=== PATIENT | male | born 1960 | race Caucasian/White ===

== ENCOUNTER 2017-07-25 14:30 | Emergency (ER) | payer OTHER ==
[~2017-07-25] VITALS: Ht 177.8 cm; Wt 86.4 kg
[2017-07-25 14:39] VITALS: Ht 177.8 cm; Wt 86.4 kg
[2017-07-25] MEDS ORDERED: SOD CHLORIDE 0.9% 1,000 ML IV STA (14:44)
[2017-07-25 15:10] LABS: BASOPHILS % 0.5 % (0.0-2.0); EOSINOPHILS % 0.3 % (0.0-7.0); HEMATOCRIT 43.2 % (42.0-52.0); HEMOGLOBIN 15.3 g/dl (14.0-18.0); LYMPHOCYTES # 2.7 10^3/ul (0.8-2.9); LYMPHOCYTES % 35.2 % (15.0-51.0); MEAN CORPUSCULAR HEMOGLOBIN 31.3 pg (29.0-33.0); MEAN CORPUSCULAR HGB CONC 35.4 g/dl (32.0-37.0); MEAN CORPUSCULAR VOLUME 88.3 fl (82.0-101.0); MEAN PLATELET VOLUME 9.4 fl (7.4-10.4); MONOCYTE # 0.6 10^3/ul (0.3-0.9); MONOCYTES % 7.2 % (0.0-11.0); NEUTROPHILS % 56.5 % (39.0-77.0); PLATELET COUNT 224 10^3/UL (140-415); RED BLOOD COUNT 4.89 10^6/ul (4.70-6.10); RED CELL DISTRIBUTION WIDTH 12.4 % (11.5-14.5); WHITE BLOOD COUNT 7.7 10^3/ul (4.8-10.8)
[2017-07-25 15:29] LABS: ALANINE AMINOTRANSFERASE 33 IU/L (13-69); ALBUMIN 4.8 g/dl (3.3-4.9); ALKALINE PHOSPHATASE 55 IU/L (42-121); ANION GAP 21 (8-16); ASPARTATE AMINO TRANSFERASE 43 IU/L (15-46); BILIRUBIN,INDIRECT 0.4 mg/dl (0-1.1); BILIRUBIN,TOTAL 0.4 mg/dl (0.2-1.3); BLOOD UREA NITROGEN 11 mg/dl (7-20); CALCIUM 9.1 mg/dl (8.4-10.2); CARBON DIOXIDE 26 mmol/L (21-31); CHLORIDE 105 mmol/L (97-110); CREATININE 0.75 mg/dl (0.61-1.24); GLUCOSE 111 mg/dl (70-220); POTASSIUM 3.9 mmol/L (3.5-5.1); SODIUM 148 mmol/L (135-144); TOTAL PROTEIN 7.8 g/dl (6.1-8.1)
[2017-07-25 15:31] LABS: ACETAMINOPHEN < 10.0 ug/ml (10.0-30.0); SALICYLATE < 1.0 mg/dl (5.0-30.0)
--- NOTE | 2017-07-25 15:56 | RADRPT ---
PROCEDURE: CT Brain without contrast. CLINICAL INDICATION: Altered Mental Status TECHNIQUE: A CT of the brain was performed on a [employer] 64-slice CT scanner utilizing axial imaging from the skull base through the vertex without IV contrast. Multiplanar reformatted images were made. Images were reviewed on a PACS workstation. The CTDIvol is 43.2 mGy and the DLP is 720 mGycm. COMPARISON: October 02, 2016 One or more of the following dose reduction techniques were used: Automated exposure control. Adjustment of the mA and/or kV according to patient size. Use of iterative reconstruction technique. FINDINGS: There is no intracranial hemorrhage, mass effect, or midline shift. No extra-axial fluid collection is seen. The ventricles and sulci are normal in size and configuration. The density of the brain is normal, and the monroe white matter differentiation appears well-preserved. The visualized paranasal sinuses and osseous structures are grossly unremarkable. IMPRESSION: 1. No evidence of acute intracranial pathology. 2. The brain is normal in appearance. Physician Gibson Date Time Electronically viewed and signed by Physician Gibson on 07/25/2017 15:56 ML/
--- NOTE | 2017-07-25 16:24 | ERD ---
ER Documentation Chief Complaint Date/Time DATE: 07/25/17 TIME: 16:18 Chief Complaint ALCOHOL INTOXICATION FOUND OUTSIDE, SINUS TACHYCARDIA BIB RA 87 HPI This is a 57-year-old male who was brought in by EMS for evaluation of altered mental status. This patient was found sleeping outside in the heat and did have an order of alcohol according to EMS. The patient was transferred to the emergency room for further evaluation. The patient is unable to give a detailed history secondary to his clinical condition at this time. ROS All systems reviewed and are negative except as per history of present illness. Allergies Allergies: Coded Allergies: No Known Allergy (Unverified , 07/25/17) PMhx/Soc History of Surgery: No Anesthesia Reaction: No Hx Neurological Disorder: No Hx Respiratory Disorders: Yes (COPD) Hx Cardiac Disorders: No Hx Psychiatric Problems: No Hx Miscellaneous Medical Probl: No Hx Alcohol Use: Yes (DAILY) Hx Substance Use: No Hx Tobacco Use: Yes (10 CIG/DAY) Smoking Status: Current every day smoker Physical Exam Vitals Vital Signs Date Time Temp Pulse Resp B/P Pulse Ox O2 Delivery O2 Flow Rate FiO2 07/25/17 15:53 99.9 90 16 134/87 100 Nasal Cannula 2.0 07/25/17 15:50 Nasal Cannula 2 07/25/17 15:12 100.9 07/25/17 14:39 103.3 107 17 136/90 100 Physical Exam INITIAL VITAL SIGNS: Reviewed by me GENERAL: The patient has a disheveled appearance, warm to touch HEENT: Dry mucous membranes, pupils equal, round, and reactive to light. EOMI. There is no scleral icterus. NECK: C-spine is soft and supple, there is no meningismus. There is no cervical lymphadenopathy. LUNGS: Clear to auscultation bilaterally. There are no rales, wheezes or rhonchi. HEART: Regular rate and rhythm, no murmurs, clicks, rubs or gallops. ABDOMEN: Soft, non-tender, non-distended. There are bowel sounds in all four quadrants. No rebound or guarding. EXTREMITIES: There is no peripheral cyanosis or edema. No focal swelling or erythema. NEUROLOGICAL: The patient moves all four extremities with 5/5 strength. Cranial nerves II - XII are intact. Normal gait. Alert and oriented SKIN: There is no apparent rash or petechiae. HEME/LYMPHATIC: There is no evidence of excessive bruising or lymphedema. PSYCHIATRIC: The patient does not appear anxious or depressed. Result Diagram: 07/25/17 1440 07/25/17 1440 Results 24 hrs Laboratory Tests Test 07/25/17 14:40 07/25/17 14:53 White Blood Count 7.710^3/ul Red Blood Count 4.8910^6/ul Hemoglobin 15.3g/dl Hematocrit 43.2% Mean Corpuscular Volume 88.3fl Mean Corpuscular Hemoglobin 31.3pg Mean Corpuscular Hemoglobin Concent 35.4g/dl Red Cell Distribution Width 12.4% Platelet Count 20966^3/UL Mean Platelet Volume 9.4fl Neutrophils % 56.5% Lymphocytes % 35.2% Monocytes % 7.2% Eosinophils % 0.3% Basophils % 0.5% Nucleated Red Blood Cells % 0.0/100WBC Neutrophils # (Manual) 4.410^3/ul Lymphocytes # 2.710^3/ul Monocytes # 0.610^3/ul Eosinophils # 0.010^3/ul Basophils # 0.010^3/ul Nucleated Red Blood Cells # 0.010^3/ul Sodium Level 148mmol/L Potassium Level 3.9mmol/L Chloride Level 105mmol/L Carbon Dioxide Level 26mmol/L Anion Gap 21 Blood Urea Nitrogen 11mg/dl Creatinine 0.75mg/dl Glucose Level 111mg/dl Calcium Level 9.1mg/dl Total Bilirubin 0.4mg/dl Direct Bilirubin 0.00mg/dl Indirect Bilirubin 0.4mg/dl Aspartate Amino Transf (AST/SGOT) 43IU/L Alanine Aminotransferase (ALT/SGPT) 33IU/L Alkaline Phosphatase 55IU/L Total Protein 7.8g/dl Albumin 4.8g/dl Globulin 3.00g/dl Albumin/Globulin Ratio 1.60 Salicylates Level < 1.0mg/dl Acetaminophen Level < 10.0ug/ml Ethyl Alcohol Level 443.0mg/dl Bedside Glucose 96mg/dL Current Medications Medications (Trade) Dose Ordered Sig/Annika Route PRN Reason Start Time Stop Time Status Last Admin Dose Admin Sodium Chloride (NS) 1,000 ml @ 1,000 mls/hr Q1H STAT IV 07/25/17 14:44 07/25/17 15:43 DC 07/25/17 14:44 Procedures/MDM CT brain without: 1. No evidence of acute intracranial pathology. 2. The brain is normal in appearance. This 57-year-old male presents to the emergency room for evaluation of altered mental status. When I evaluated this patient he was warm to the touch and did have a temperature of 103F. The patient was placed on a monitor, IV line was established and the patient did have lab work drawn and also underwent a CT the brain which does not reveal any acute intracranial process. Patient was cold with external ice packs and was given cold IV saline cold IV fluids. When I reevaluated this patient he had a temperature of 98.9F. This patient likely suffering from heat exhaustion and alcohol intoxication. This patient will be discharged when he is clinically sober. Departure Diagnosis: Primary Impression: Heat exhaustion Additional Impressions: Alcohol ingestion Dehydration Condition: Stable LORA WATERS DO Jul 25, 2017 16:23
[2017-07-25 17:32] LABS: ADD UMIC YES; UR ASCORBIC ACID NEGATIVE (NEGATIVE); UR BILIRUBIN (Dip) NEGATIVE (NEGATIVE); UR BLOOD (Dip) 1+ mg/dL (NEGATIVE); UR CLARITY CLEAR (CLEAR); UR COLOR YELLOW (YELLOW); UR GLUCOSE (Dip) NEGATIVE (NEGATIVE); UR KETONES (Dip) NEGATIVE (NEGATIVE); UR LEUKOCYTE ESTERASE (Dip) NEGATIVE Leu/ul (NEGATIVE); UR NITRITE (Dip) NEGATIVE (NEGATIVE); UR RBC 0 /HPF (0-5); UR SPECIFIC GRAVITY (Dip) 1.012 (1.003-1.030); UR TOTAL PROTEIN (Dip) 1+ mg/dl (NEGATIVE); UR UROBILINOGEN (Dip) NEGATIVE (NEGATIVE)
[2017-07-25] MEDS ORDERED: D5W-0.45 NACL + KCL 10 MEQ 1,000 ML IV ONE (18:08)
[2017-07-25 19:15] VITALS: BP 106/68; PULSE 70; RESP 16; TEMP 97.7
[2017-07-25 21:47] LABS: BARBITURATES Negative (NEGATIVE); BENZODIAZEPINES Negative (NEGATIVE); CANNABINOIDS Negative (NEGATIVE); COCAINE Negative (NEGATIVE); OPIATES Negative (NEGATIVE)
== END 2017-07-25 19:46 | disposition home or self-care (01) ==
LOC: E/R 14:30
DX: T67.5XXA Heat exhaustion, unspecified, initial encounter (principal); E86.0 Dehydration; F17.210 Nicotine dependence, cigarettes, uncomplicated; J44.9 Chronic obstructive pulmonary disease, unspecified; R41.82 Altered mental status, unspecified
CPT/HCPCS: 36415; 70450; 80053; 80306; 80307; 81001; 82962; 85025; 93005; 96374; J3480; J7030; Z7502

== ENCOUNTER 2019-07-09 10:30 | Emergency (ER) | payer OTHER ==
[~2019-07-09] VITALS: Ht 170.2 cm; Wt 78.6 kg
[~2019-07-09 10:30] MED LIST: ALBU8.5H8 INH; BEN50 PO; ELEC100095 PO; IBUP-1542 PO; ONDA4TAB14 PO; UMEC1DIS INHALATION
[2019-07-09 10:32] VITALS: Ht 170.2 cm; Wt 78.6 kg
[2019-07-09] MEDS ORDERED: LORAZEPAM 2 MG INJ IV ONE (11:00)
[2019-07-09] MEDS ORDERED: SOD CHLORIDE 0.9% 250 ML IV ONE (11:00)
--- NOTE | 2019-07-09 11:25 | ERD ---
ER Documentation Chief Complaint Chief Complaint cough & dizziness x1wk HPI Is a 59-year-old male presented to ED for multiple symptoms x1 week. Patient states she is had a little bit of cough he feels weak and dizzy. Patient has a history of alcohol abuse and has been sober for the last few months. Patient states he recently relapsed and went on a drinking binge for the last month he was drinking 1/5 of vodka per day. Patient states that he stopped drinking about 5 days ago and since then his symptoms have been worsening. Patient states he has had some dark-colored urine over the past few days but today it was normal. Patient denies any fever chills night sweats. Patient denies any allergies to medications. Patient states he is currently taking doxycycline for acute bronchitis. Patient has a history of emphysema and is a current 1 pack/day smoker. ROS All systems reviewed and are negative except as per history of present illness. Medications Home Meds Active Scripts Diphenhydramine Hcl* (Benadryl*) 50 Mg Cap, 50 MG PO Q6 PRN for AGITATION/ANXIETY, #15 CAP Prov:BERTHA SOLANO PA-C 07/09/19 Umeclidinium Brm-Vilanterol Tr (Anoro Ellipta) 62.5-25 Mcg Disk.w.dev, 1 EACH INHALATION DAILY, #1 DISK Prov:BERTHA SOLANO PA-C 07/09/19 Albuterol Sulfate* (Proair HFA*) 8.5 Gm Hfa.aer.ad, 2 PUFF INH Q4, #1 INHALER Prov:BERTHA SOLANO PA-C 07/09/19 Ondansetron (Ondansetron Odt) 4 Mg Tab.rapdis, 4 MG PO Q6H PRN for NAUSEA AND/OR VOMITING, #10 TAB Prov:BERTHA SOLANO PA-C 07/09/19 Electrolytes (Pedialyte Advanced Care) 1,000 Ml Solution, 1000 ML PO AC A for 10 Days Prov:BERTHA SOLANO PA-C 07/09/19 Ibuprofen* (Motrin*) 600 Mg Tab, 600 MG PO Q6, #30 TAB Prov:BERTHA SOLANO PA-C 07/09/19 Allergies Allergies: Coded Allergies: No Known Allergy (Unverified , 07/25/17) PMhx/Soc Medical and Surgical Hx: pt denies Surgical Hx History of Surgery: No Anesthesia Reaction: No Hx Neurological Disorder: No Hx Respiratory Disorders: Yes (COPD) Hx Cardiac Disorders: No Hx Psychiatric Problems: No Hx Miscellaneous Medical Probl: No Hx Alcohol Use: Yes (DAILY) Hx Substance Use: No Hx Tobacco Use: Yes (10 CIG/DAY) Smoking Status: Current every day smoker FmHx Family History: No diabetes, No coronary disease, No other Physical Exam Vitals Vital Signs Date Temp Pulse Resp B/P (MAP) Pulse Ox O2 O2 Flow FiO2 Time Delivery Rate 07/09/19 97.6 80 18 122/82 98 Room Air 12:39 (95) 07/09/19 97.4 91 18 163/95 99 10:32 (117) Physical Exam GENERAL: Moderate distress HEENT: Atraumatic. Conjunctivae are pink. Pupils equal, round, and reactive to light. There is no scleral icterus. Tympanic membranes clear bilaterally. Oropharynx clear. No nystagmus or photophobia. NECK: C-spine is soft and supple. There is no meningismus. There is no cervical lymphadenopathy. CHEST: Decreased breath sounds bilaterally HEART: Regular rate and rhythm. No murmurs, clicks, rubs or gallops. ABDOMEN:Soft, nontender and nondistended. Good bowel sounds. No rebound or guarding. No gross peritonitis. No gross organomegaly or masses. No Delong sign or McBurney point tenderness. BACK: No midline or flank tenderness. SKIN: There is no apparent rash or petechiae. The skin is warm and dry. Result Diagram: 07/09/19 1115 07/09/19 1115 Results 24 hrs Laboratory Tests Test 07/09/19 11:15 White Blood Count 6.1 10^3/ul Red Blood Count 4.20 10^6/ul Hemoglobin 14.2 g/dl Hematocrit 41.6 % Mean Corpuscular Volume 99.0 fl Mean Corpuscular Hemoglobin 33.8 pg Mean Corpuscular Hemoglobin Concent 34.1 g/dl Red Cell Distribution Width 12.8 % Platelet Count 117 10^3/UL Mean Platelet Volume 9.8 fl Immature Granulocytes % 0.500 % Neutrophils % 60.6 % Lymphocytes % 15.7 % Monocytes % 21.9 % Eosinophils % 0.8 % Basophils % 0.5 % Nucleated Red Blood Cells % 0.0 /100WBC Immature Granulocytes # 0.030 10^3/ul Neutrophils # 3.7 10^3/ul Lymphocytes # 1.0 10^3/ul Monocytes # 1.3 10^3/ul Eosinophils # 0.1 10^3/ul Basophils # 0.0 10^3/ul Nucleated Red Blood Cells # 0.0 10^3/ul Urine Color YELLOW Urine Clarity CLEAR Urine pH 6.0 Urine Specific Tererro 1.006 Urine Ketones NEGATIVE mg/dL Urine Nitrite NEGATIVE mg/dL Urine Bilirubin NEGATIVE mg/dL Urine Urobilinogen NEGATIVE mg/dL Urine Leukocyte Esterase TRACE Viraj/ul Urine Microscopic RBC 2 /HPF Urine Microscopic WBC 2 /HPF Urine Hemoglobin NEGATIVE mg/dL Urine Glucose NEGATIVE mg/dL Urine Total Protein NEGATIVE mg/dl Sodium Level 138 mmol/L Potassium Level 3.8 mmol/L Chloride Level 96 mmol/L Carbon Dioxide Level 32 mmol/L Anion Gap 10 Blood Urea Nitrogen 10 mg/dl Creatinine 0.72 mg/dl Est Glomerular Filtrat Rate mL/min > 60 mL/min Glucose Level 117 mg/dl Calcium Level 10.7 mg/dl Total Bilirubin 0.7 mg/dl Direct Bilirubin 0.00 mg/dl Indirect Bilirubin 0.7 mg/dl Aspartate Amino Transf (AST/SGOT) 42 IU/L Alanine Aminotransferase (ALT/SGPT) 49 IU/L Alkaline Phosphatase 55 IU/L Troponin I < 0.012 ng/ml B-Type Natriuretic Peptide 26 PG/ML Total Protein 8.6 g/dl Albumin 5.0 g/dl Globulin 3.60 g/dl Albumin/Globulin Ratio 1.38 Current Medications Medications Dose Sig/Annika Start Time Status Last (Trade) Ordered Route PRN Stop Time Admin Dose Reason Admin Sodium 250 ml @ Q1H ONCE 07/09/19 DC 07/09/19 Chloride 250 mls/hr IV 11:00 11:17 07/09/19 11:59 Lorazepam 0.5 mg ONCE ONCE 07/09/19 DC 07/09/19 (Ativan) IV 11:00 11:07/09/19 11:04 Procedures/MDM ED course: The patient was stable throughout the ED course. The patient and/or family informed of laboratory and diagnostic imaging results throughout the ED course. Smoking Cessation Therapy: Pt. was lectured for greater than 3 minutes on the health risks of continued smoking and the benefits of cessation. EKG: Read by Dr. Austin attending physician. EKG shows normal sinus rhythm at rate of 87 No arrhythmias, acute ST elevations or T wave changes were noted. Diagnostic imaging: Read by radiologist Dr. Schreiber PROCEDURE: XR Chest AP portable CLINICAL INDICATION: Short of breath TECHNIQUE: An AP portable radiograph of the chest was submitted. COMPARISON: None available FINDINGS: Support Hardware: None Cardiovascular: The cardiovascular silhouette appears unremarkable. Lung Gamino: The lung gamino are mildly hyperexpanded but clear. Pleural Spaces: No pneumothorax or pleural effusion is identified. Osseous Structures: There is mild diffuse degenerative enthesopathy of the thoracic spine. Soft Tissues: Unremarkable IMPRESSION: 1. Mild pulmonary hyperexpansion with the lung gamino and pleural spaces clear. 2. The cardiovascular silhouette appears unremarkable. 3. Mild degenerative enthesopathy of the thoracic spine Medications given in ER: Normal saline Ativan Patient tolerated medication well with no adverse reactions. Patient reported improvement in pain. Medical decision makin-year-old male presented to the ED for multiple symptoms. Patient states that he just felt weak over the past week. Patient states is a little bit of cough going on as well. Patient states he recently went on a drinking binge for 1 month where he was drinking 1/5 of vodka per day. Patient states he was sober for the last 8 months and just had a relapse. Patient denies any homicidal or suicidal ideations. Patient states alcohol abuse is something he is just struggled with for his entire life. Patient states he has never had a seizure from alcohol withdrawal. Patient is presented to ED with vitals within stable limits and afebrile. The patient was given a milligram of Ativan normal saline while in the ED. Patient's EKG and blood work are unremarkable. Patient's UA showed trace leukocyte esterase but the patient has no urinary symptoms. Patient is also currently taking antibiotics for bronchitis. I do not think the patient needs antibiotic treatment for UTI he has no symptoms and there was only trace leukocyte esterase there is no nitrates on the UA. Patient's chest x-ray showed no infiltrates patient's O2 sats indicate the patient is not hypoxic. Patient remained stable during the entire ED visit. At this time I have low suspicion for pneumonia, pericarditis, CHF ,PR, sepsis, pyelonephritis, delirium tremors, alcohol withdrawal, suicidal/homicidal ideation. The patient asked if I can refill his medications for his COPD. Patient remained stable during the entire visit in the ED and reports an improvement in symptoms with Ativan and fluids. Advised patient needs follow-up with primary care provider in 1 to 2 days regarding this visit. Advised patient the symptoms worsen return to ER immediately all questions were answered upon discharge and patient is in agreement to treatment plan. Prescription for home: Albuterol Zofran Pedialyte Motrin Pro Air anoro ellipta I have discussed with the patient proper use and common side effects to expert with the medication . I advised the patient/family to speak with the pharmacist dispensing the medication to be advised of any potential drug interactions with other medication or supplements they may be taking. Discharge: At this time, patient is stable for discharge and outpatient management. I have instructed the patient to follow-up with his\her primary care physician in 1 to 2 days. I have discussed with the patient the possibility of needing to see a specialist for further work-up and imaging studies if symptoms persist. I have instructed the patient to promptly return to the ER for any new or worsening symptoms including increased pain, fever, nausea, vomiting, weakness or LOC. The patient and\or family expressed understanding of and agreement with this plan. All questions were answered. Home care instructions were provided. Disclaimer: Inadvertent spelling and grammatical errors are likely due to EHR\dictation software use and do not reflect on the overall quality of patient care. Also, please note that the electronic time recorded on the note does not necessarily reflect the actual time of the patient encounter. Departure Diagnosis: Primary Impression: Cough Additional Impressions: COPD (chronic obstructive pulmonary disease) COPD type: emphysema Emphysema type: unspecified Qualified Codes: J43.9 - Emphysema, unspecified Generalized weakness Condition: Stable BERTHA SOLANO PA-C Jul 09, 2019 11:25
[2019-07-09 12:39] VITALS: BP 122/82; PULSE 80; RESP 18
== END 2019-07-09 12:41 | disposition home or self-care (01) ==
LOC: FTE 10:30
DX: J43.9 Emphysema, unspecified (principal); F17.210 Nicotine dependence, cigarettes, uncomplicated; R53.1 Weakness
CPT/HCPCS: 71045; 80053; 81001; 83880; 84484; 85025; 93005; 96374; J2060; J7040; Z7502